=== PATIENT | male | born 1970 | race Two or more races ===

== ENCOUNTER 2019-07-04 23:36 | Emergency (ER) | payer OTHER ==
[~2019-07-04] VITALS: Ht 172.7 cm; Wt 136.1 kg
[2019-07-05 00:33] LABS: Basophils # (auto) 0 uL; Basophils % (auto) 0.4 % (0.0-2.0); Eosinophils # (auto) 0.5 uL; Eosinophils % (auto) 7.4 % (0.0-7.0); Hematocrit 41.7 % (41.0-53.0); Lymphocytes # (auto) 1.9 uL; Lymphocytes % (auto) 29.3 % (10.0-50.0); Mean Corpuscular Hemoglobin 31.2 pg (28.0-32.0); Mean Corpuscular Hgb Conc. 33.5 g/dL (32.0-36.0); Mean Corpuscular Volume 93.1 fL (80.0-100.0); Monocytes # (auto) 0.4 uL; Monocytes % (auto) 5.7 % (0.0-12.0); Neutrophils # (auto) 3.7 uL; Neutrophils % (auto) 57.2 % (37.0-80.0); Nucleated Red Blood Cells % 0.1 %; Platelet Count (auto) 210 10^3/uL (140-450); Red Blood Cells 4.48 10^6/uL (4.5-5.90); Red Cell Distribution Width 13.7 % (11.8-14.3); White Blood Cell 6.5 10^3/uL (4.4-10.8)
[2019-07-05 00:51] LABS: Albumin 2.4 g/dL (3.4-5.0); BUN/Creatinine Ratio 11.5
[2019-07-05 00:58] LABS: Calcium 5.5 mg/dL (8.5-10.1); Potassium 2.3 mmol/L (3.5-5.1)
[2019-07-05] MEDS ORDERED: SODIUM CHLORIDE 0.9% 3,000 ML IV ONE (01:00)
[2019-07-05 01:01] LABS: Bilirubin, Total 0.2 mg/dL (0.2-1.0); Total Protein 5.1 g/dL (6.4-8.2)
[2019-07-05 01:14] LABS: Blood Alcohol 361.9 mg/dL (0-5)
[2019-07-05] MEDS ORDERED: POTASSIUM CHL 20MEQ/100ML 100 ML IV SCH (02:00)
[2019-07-05] MEDS ORDERED: CALCIUM GLUC 4.65meq/50ml D5AE 50 ML IV ONE (02:00)
[2019-07-05] MEDS ORDERED: MAGNESIUM SULFATE 1GM/100ML 100 ML IV SCH (02:15)
[2019-07-05 04:30] LABS: Amphetamine Screen, Urine NEGATIVE (NEGATIVE); Barbiturate Scree,Urine NEGATIVE (NEGATIVE); Benzodiazephine Screen, Urine NEGATIVE (NEGATIVE); Cannabinoid Screen, Urine NEGATIVE (NEGATIVE); Cocaine Screen, Urine NEGATIVE (NEGATIVE); Opiate Scree,Urine NEGATIVE (NEGATIVE); Phencyclidine Screen, Urine NEGATIVE (NEGATIVE)
[2019-07-05 05:50] VITALS: BP 126/83
[2019-07-05] MEDS ORDERED: FOLIC ACID 1 MG, MULTIPLE VITAMIN 10 ML, MAGNESIUM SULF SDV 50% 8 MEQ, THIAMINE INJ 100... INJ SCH ×5 (12:00)
== END 2019-07-05 06:27 | disposition short-term general hospital (02) ==
LOC: EDBD 23:36 → ER 23:39
DX: G93.41 Metabolic encephalopathy (principal); E87.8 Other disorders of electrolyte and fluid balance, not elsewhere classified; F10.129 Alcohol abuse with intoxication, unspecified; Y90.8 Blood alcohol level of 240 mg/100 ml or more
CPT/HCPCS: 36415; 70450; 80053; 80307; 80320; 85025; 94761; 96361; 96365; 96366; 96367; 96368; 99291; J0610; J3411; J3475; J3480; J7030; J7070